=== PATIENT | male | born 1970 | race Caucasian/White ===

== ENCOUNTER 2016-12-18 05:57 | Emergency (ER) | payer OTHER ==
[~2016-12-18 05:57] MED LIST: BENADRYL25 M3 PO; FAMOTIDINE PO; NO MEDICATIONS; NORCO 5/325 TAB1 TAB PO; PREDNISONE PO; ULTRAM PO; VIT B-12 PO; [UNRECOGNIZED DRUG - REMARK]
[2017-06-21] MEDS ORDERED: SENNA-TIME S T1 EACH PO (14:24)
[2017-06-21] MEDS ORDERED: HYDROCODON-ACE1 EAC7 PO (14:26)
== END 2016-12-18 06:40 | disposition home or self-care (01) ==
LOC: SED 05:57
DX: F11.129 Opioid abuse with intoxication, unspecified (principal)
CPT/HCPCS: 99282